=== PATIENT | male | born 1990 | race Caucasian/White ===

== ENCOUNTER 2017-01-22 23:26 | Emergency (ER) | payer SELFPAY ==
[2017-01-22 23:31] VITALS: RESP 16
[2017-01-22] MEDS ORDERED: ONDANSETRON 4 MG/2 ML VIAL IVP ONE (23:41)
[2017-01-22] MEDS ORDERED: NS 2,000 ML IV ONE (23:41)
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
[2017-01-22 23:49] LABS: % IMMATURE GRANULYOCYTES 0.2 % (0.0-1.1); ABSOLUTE IMMATURE GRANULOCYTES 0.02 10^3/uL (0.00-0.10); ADD DIFF? NO; ADD MORPH? NO; ADD SCAN? NO; ATYPICAL LYMPHOCYTE FLAG 10 (0-99); FRAGMENT RBC FLAG 0 (0-99); HEMATOCRIT 43.7 % (40.0-51.0); LEFT SHIFT FLG 0 (0-99); LIPEMIA HEMOLYSIS FLAG 90 (0-99); MEAN CELL HEMOGLOBIN 30.7 pg (27.9-34.1); MEAN CELL HEMOGLOBIN CONCENTR. 34.3 g/dL (32.4-36.7); MEAN CELL VOLUME 89.4 fL (81.5-99.8); MEAN PLATELET VOLUME 9.7 fL (8.7-11.7); PLATELET CLUMPS FLAG 0 (0-99); PLATELET COUNT 328 10^3/uL (150-400); RED BLOOD CELL COUNT 4.89 10^6/uL (4.40-6.38); RED CELL DISTRIBUTION WIDTH 12.6 % (11.5-15.2)
[2017-01-23 00:06] LABS: ALANINE AMINOTRANSFERASE 62 IU/L (21-72); ALBUMIN 4.5 g/dL (3.5-5.0); ALKALINE PHOSPHATASE 48 IU/L (38-126); ANION GAP 16 mEq/L (8-16); ASPARTATE AMINOTRANSFERASE 42 IU/L (17-59); BILIRUBIN,TOTAL 0.5 mg/dL (0.1-1.4); BILIRUBIN-CONJUGATED 0.4 mg/dL (0.0-0.5); BILIRUBIN-UNCONJUGATED 0.1 mg/dL (0.0-1.1); CALCIUM 9.5 mg/dL (8.5-10.4); CARBON DIOXIDE 19 mEq/l (22-31); CHLORIDE 107 mEq/L (97-110); CREATININE 0.8 mg/dL (0.7-1.3); ETHANOL SERUM 171 mg/dL (0-10); GLOMERULAR FILTRATION RATE > 60; GLUCOSE 98 mg/dL (70-100); SODIUM 142 mEq/L (134-144); TOTAL PROTEIN 7.7 g/dL (6.3-8.2)
[2017-01-23 01:12] VITALS: BP 116/66; PULSE 76; TEMP 97.9; O2SAT 96
== END 2017-01-23 01:12 | disposition home or self-care (01) ==
DX: R11.2 Nausea with vomiting, unspecified (principal); F17.200 Nicotine dependence, unspecified, uncomplicated; E86.9 Volume depletion, unspecified
CPT/HCPCS: 96374; G0480; J2405

== ENCOUNTER 2017-08-22 15:25 | Emergency (ER) | payer MEDICAID ==
[2017-08-22] MEDS ORDERED: TDAP ADULT 0.5 ML INJ (BOOSTRIX) IM ONE (16:06)
[2017-08-22] MEDS ORDERED: AMOXICILLIN/CLAVULANATE POT 875/125 MG TAB PO ONE (16:07)
[2017-08-22] MEDS ORDERED: SULFAMETHOX/TMP 800/160 MG 1 TAB PO ONE (16:07)
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
[2017-08-22 17:50] VITALS: BP 135/80; PULSE 81; RESP 18; TEMP 98.6; O2SAT 97
== END 2017-08-22 16:40 | disposition home or self-care (01) ==
DX: S61.452A Open bite of left hand, initial encounter (principal); F17.200 Nicotine dependence, unspecified, uncomplicated; Z23 Encounter for immunization; Y04.1XXA Assault by human bite, initial encounter; Y99.8 Other external cause status; Y93.89 Activity, other specified

== ENCOUNTER 2017-09-25 06:54 | Inpatient (IN) | payer MEDICAID ==
--- NOTE | 2017-09-25 07:32 | EDPHY ---
H & P Time Seen by Provider: 09/25/17 07:11 HPI/ROS: CHIEF COMPLAINT: Pain all over HISTORY OF PRESENT ILLNESS: 27-year-old male presents with a chief complaint of diffuse myalgias. 2 week history a painful rash on the lower extremities. The rash was initially accompanied by a sore throat, but the sore throat has now resolved. Over the past 2 days, he has noted increasing pain of the right ankle and this morning noticed that the ankle was red. However, his chief complaint is that he has pain all over, mainly in his upper and lower extremities. No known fever. No prior similar symptoms. REVIEW OF SYSTEMS: Constitutional: No fever, no chills Eyes: No visual changes ENT: No rhinorrhea Respiratory: No cough, no shortness of breath Cardiac: No chest pain Gastrointestinal: No nausea, no vomiting, no abdominal pain Genitourinary: No hematuria, no dysuria Musculoskeletal: No leg swelling Neurological: No headache, no numbness, no weakness Psychiatric: No depression Past Medical/Surgical History: Hepatitis-C Social History: lives in [place], staying with friends, employed Moderate alcohol use No IV drug abuse Smoking Status: Current every day smoker Physical Exam: General Appearance: Alert, pleasant, nontoxic-appearing Eyes: Pupils equal and round, no conjunctival pallor or injection ENT, Mouth: Mucous membranes moist, erythema of the posterior pharynx and uvula Neck: Normal inspection, no adenopathy Respiratory: Lungs are clear to auscultation Cardiovascular: Regular rate and rhythm, no murmur Gastrointestinal: Abdomen is soft and nontender Neurological: A&O, nonfocal, normal gait Skin: Warm and dry, purpuric rash on the lower legs Extremities: erythema, warmth and tenderness on the lateral aspect of the right ankle and foot, right ankle range of motion without pain Psychiatric: Mood and affect normal Constitutional: Initial Vital Signs Temperature (C) 36.8 C 09/25/17 07:00 Heart Rate 90 09/25/17 07:00 Respiratory Rate 18 09/25/17 07:00 Blood Pressure 139/99 H 09/25/17 07:00 O2 Sat (%) 96 09/25/17 07:00 O2 Delivery Mode Room Air Allergies/Adverse Reactions: No Known Allergies Allergy (Unverified 01/22/17 23:31) Home Medications: Medication Instructions Recorded Ferrous Sulfate [Ferrous Sulf 325 325 mg PO DAILY 09/25/17 MG (*)] Penicillin V Potassium [Pen Vk 500 mg PO QID #28 tab 09/26/17 500mg (*)] traMADol [Ultram 50 mg (*)] 50 mg PO Q6HRS PRN #10 tab 09/26/17 Medical Decision Making - Diagnostics Imaging Results: Ankle X-Ray 09/25/17 07:28 Impression: 1. No acute osseous abnormalities. 2. Marked soft tissue swelling about the lateral malleolus. Imaging: I viewed and interpreted images myself ED Course/Re-evaluation: This patient presents with cellulitis of the right lower extremity and a purpuric rash. Does not meet SIRS criteria. Concern for rhabdomyolysis versus viral infection, given diffuse muscular tenderness. He is nontoxic-appearing, though certainly will need to be admitted for further evaluation and care. Rapid strep obtained d/t recent ST and pharyngeal erythema; ?rash related to strep. X-ray of the right ankle ordered to rule out foreign body. No evidence of joint infection or gout; no pain with ROM of ankle. Laboratory results and x-ray discussed with the patient. Labs reveal leukocytosis, no coagulopathy and neg rapid strep. Xray negative for FB. Mild rhabdomyolysis with a CK of 1000; IV normal saline 1 L given. Myalgias secondary to rhabdo. Ancef 1 g IV given for cellulitis. The hospitalist service was consulted for admission. Differential Diagnosis: Differential diagnosis includes though not limited to SJS, osteomyelitis, retained foreign body, HSP, meningococcemia, rheumatologic disease, drug toxicity. - Data Points Laboratory Results: Laboratory Results 09/25/17 07:25 09/25/17 07:25 Medications Given: Discontinued Medications Acetaminophen (Tylenol) 650 mg PO ONCE ONE Stop: 09/25/17 09:31 Last Admin: 09/25/17 11:07 Dose: Not Given Enoxaparin Sodium (Lovenox) 40 mg SC DAILY AMARILIS Stop: 03/25/18 08:59 Last Admin: 09/26/17 08:15 Dose: 40 mg Ferrous Sulfate (Ferrous Sulfate) 325 mg PO DAILY AMARILIS Stop: 03/25/18 08:59 Last Admin: 09/26/17 08:13 Dose: 325 mg Cefazolin Sodium/Dextrose (Ancef 1 Gm (Premix)) 50 mls @ 200 mls/hr IV EDNOW ONE PRN Reason: Protocol Stop: 09/25/17 08:18 Last Admin: 09/25/17 08:19 Dose: 50 mls Sodium Chloride (Ns) 1,000 mls @ 0 mls/hr IV ONCE ONE; Wide Open PRN Reason: Protocol Stop: 09/25/17 08:11 Last Admin: 09/25/17 08:19 Dose: 1,000 mls Cefazolin Sodium/Dextrose (Ancef 1 Gm (Premix)) 50 mls @ 200 mls/hr IV Q8HRS AMARILIS PRN Reason: Protocol Stop: 10/25/17 13:59 Last Admin: 09/26/17 06:22 Dose: 50 mls Sodium Chloride (Ns) 1,000 mls @ 125 mls/hr IV CONT AMARILIS Stop: 03/24/18 11:29 Last Admin: 09/26/17 04:03 Dose: 1,000 mls Penicillin V Potassium (Pen Vk) 500 mg PO QID AMARILIS PRN Reason: Protocol Stop: 10/26/17 11:59 Last Admin: 09/26/17 12:40 Dose: 500 mg Tramadol HCl (Ultram) 50 mg PO Q6HRS PRN PRN Reason: Pain, Moderate Able to Take PO Stop: 03/24/18 09:51 Last Admin: 09/25/17 10:00 Dose: 50 mg Departure - Departure Disposition: [facility] Inpatient Acute Clinical Impression: Purpura Cellulitis Qualifiers: Site of cellulitis: extremity Site of cellulitis of extremity: lower extremity Laterality: right Qualified Code(s): L03.115 - Cellulitis of right lower limb Rhabdomyolysis Qualifiers: Rhabdomyolysis type: non-traumatic Qualified Code(s): M62.82 - Rhabdomyolysis Condition: Fair
[2017-09-25 07:34] LABS: PLATELET COUNT 339 10^3/uL (150-400)
[2017-09-25 07:44] LABS: INR 0.99 (0.83-1.16); PROTIME(PATIENT) 13.3 SEC (12.0-15.0)
[2017-09-25 07:47] LABS: CREATINE KINASE 1054 IU/L (0-224)
[2017-09-25] MEDS ORDERED: NS 1,000 ML IV ONE (08:10)
[2017-09-25] MEDS ORDERED: ACETAMINOPHEN 500 MG TAB PO ONE (09:22)
[2017-09-25] MEDS ORDERED: ACETAMINOPHEN 325 MG TAB ONE (09:24)
[2017-09-25] MEDS ORDERED: ACETAMINOPHEN 325 MG TAB PO ONE (09:30)
[2017-09-25] MEDS ORDERED: traMADol 50 MG TAB PO PRN (09:52)
[2017-09-25] MEDS ORDERED: LORazepam 2 MG/ML INJ IVP PRN (11:31)
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
[2017-09-25] MEDS: NS 1,000 ML IV SCH ×2 (12:29→20:05)
[2017-09-25 13:18] LABS: CREATINE KINASE 884 IU/L (0-224)
--- NOTE | 2017-09-25 13:49 | PDMN ---
Medical Necessity Medical necessity: Pt meets IP criteria per MD; est los >2 mn for eval/tx of LE rash, cellulitis of ankle, rhabdomyolysis & possible alcohol withdrawal; admit for further workup/monitoring, IV abx, IVFs & CIWA protocol; hx hep C, IV drug use & heavy alcohol use; per H&P & order; 09/25/17
--- NOTE | 2017-09-25 19:01 | POSTOPPROG ---
Post Op Note Date of Operation: 09/25/17 Surgeon: Jairon Salomon Anesthesia: Local (Specify) Pre-op Diagnosis: SKIN RASH IN POSSIBLE ABSCESS Post-op Diagnosis: SAME Indication: DIAGNOSIS Procedure: FULL-THICKNESS SKIN BIOPSY AND I AND D A OF MALLEOLAR ABSCESS Findings: PATH PENDING BUT THE ABSCESS FLUCTUANT AREA IT DID NOT CONTAIN ANY TRUE PUS Inf/Abcess present in the surg proc area at time of surgery?: Yes Depth: Superfical (Skin SQ) EBL: Minimal Complications: NONE Specimen(s): SKIN BIOPSY AND CULTURE
--- NOTE | 2017-09-26 00:47 | SOAPPROG ---
SOAP Progress Note Assessment/Plan: Assessment: 27 MALE WITH DIFFUSE PURPURA ON BOTH LEGS WITH EDEMA AND QUESTIONABLE FLUCTUANCE AROUND THE LAT MALLEOLUS FULL PULSES +HX OF HEP C NEED DIAGNOSTIC BX/ RISKS AND OPTIONS FULLY DISCUSSED Plan:DAILY WOUND PACKING/ SPECIMEN TO PATH AND C&S 09/26/17 00:43 Objective: Vital Signs Temp Pulse Resp BP Pulse Ox 36.8 C 72 16 127/74 H 97 09/25/17 23:16 09/25/17 23:16 09/25/17 23:16 09/25/17 23:16 09/25/17 23:16 Microbiology 09/25/17 13:20 Gram Stain - Final Other - Swab 09/24/17 09/25/17 09/26/17 05:59 05:59 05:59 Intake Total 1000 Output Total 250 Balance 750 PT 13.3 SEC (12.0-15.0) 09/25/17 07:25 INR 0.99 (0.83-1.16) 09/25/17 07:25 ICD10 Worksheet Patient Problems: Problems Problem Status Onset Cellulitis Acute Purpura Acute Rhabdomyolysis Acute
[2017-09-26] MEDS: NS 1,000 ML IV SCH (04:03)
[2017-09-26] MEDS ORDERED: ENOXAPARIN 40 MG/0.4 ML SYR SC SCH (09:00)
[2017-09-26] MEDS ORDERED: FERROUS SULFATE 325 MG TAB PO SCH (09:00)
[2017-09-26 10:53] LABS: GROUP A STREP DNA (THROAT) POSITIVE (NEGATIVE)
[2017-09-26] MEDS ORDERED: KETOROLAC 30 MG/1 ML SDV IVP PRN (10:56)
[2017-09-26 11:25] VITALS: BP 121/71
[2017-09-26] MEDS ORDERED: PENICILLIN VK 500 MG TAB PO SCH (12:00)
[2017-09-26 13:14] LABS: HIV TYPE 1 AND 2 NEGATIVE (NEGATIVE)
--- NOTE | 2017-09-26 17:55 | ASMTCMCOM ---
CM Note CM Note Notes: Dc order received. Met with pt to discuss dc poc. Pt is homeless & does not have a car. States he has some friends to stay with & a bus pass. Pt also has a job & money for his medications. Pt agreeable to follow-up care at the [facility]. Appointment made for pt for 09/29/[address] Martinez' pt agreeable. Pt provided with [facility] info. Spoke with RN; pt taught how to do his dressing changes & was provided with supplies. No other needs at this time. Date Signed: 09/26/2017 05:53 PM Electronically Signed By:Xochitl Booker RN
--- NOTE | 2017-09-26 18:07 | ASDISCHSUM ---
Discharge Information Plan Status:Homeless/Penitentiary Medically Cleared to Leave: Discharge Date:09/26/2017 03:44 PM CM D/C Disposition:Home, Routine, Self-Care ADT D/C Disposition:Home, Routine, Self-Care Projected Discharge Date:09/26/2017 03:44 PM Transportation at D/C:Bus Ticket Discharge Delay Reason: Follow-Up Date:09/26/2017 03:44 PM Discharge Slot: Final Diagnosis: Placement Information Patient Contact Information Contact Name:TIARRABANG Relationship: Address: Home Phone: Work Phone: City: Alternate Phone: State/Qraved Code: Email: Financial Information Financial Class:Medicaid Primary Plan Desc:MEDDATA Primary Plan Number:[id number] Secondary Plan Desc: Secondary Plan Number: Assessment Information [facility] CM Progress Note CM Note CM Note Notes: Dc order received. Met with pt to discuss dc poc. Pt is homeless & does not have a car. States he has some friends to stay with & a bus pass. Pt also has a job & money for his medications. Pt agreeable to follow-up care at the [facility]. Appointment made for pt for 09/29/[address] Martinez' pt agreeable. Pt provided with [facility] info. Spoke with RN; pt taught how to do his dressing changes & was provided with supplies. No other needs at this time. Date Signed: 09/26/2017 05:53 PM Electronically Signed By:Xochitl Booker RN LACE LACErika Length of stay for Answers: 2 days current admission Acuity / Level of Answers: Yes Care: Did the patient have an inpatient admission? # of Emergency department Answers: 1-2 visits in the last 6 months Social determinants Answers: History of substance abuse (ETOH, street drugs, prescription drugs, etc.) Homelessness (street, [facility]) Lack of community resources and/or lack of social support (no pcp, lives alone, transportation, mago d) Score: 16 Date Signed: 09/26/2017 05:56 PM Electronically Signed By:Xochitl Booker RN Intervention Information
--- NOTE | 2017-09-26 18:28 | GDS ---
[f rep st] DISCHARGE SUMMARY DISCHARGE DIAGNOSES: Include: 1. Acute rash/purpura. 2. Chronic hepatitis C. 3. Polysubstance abuse. 4. Myalgias/arthralgias. HISTORY OF PRESENT ILLNESS: A 27-year-old male who is partially homeless, living on [employer] couches and working as a vegetable preparer, who presents with pain of the right lower extremity with associated chilo a and a new rash of his bilateral shins. For details of the patient's initial presentation please see the history and physical dated 09/25/2017. CONSULTATIVE SERVICES: Include General Surgery. PROCEDURES: Include skin biopsy. HOSPITAL COURSE: 1. Acute rash/purpura. There was a non-blanching skin change with associated swelling of the right a nkle and foot. There was noted erythema and edema over the lateral malleolus of the right ankle witho ut additional streaking or cellulitic changes. The patient was brought in and worked up for possible cryoglobulinemia related to his chronic hep C or other causes of leukocytoclastic vasculitis. In the screening laboratories, patient's strep A DNA was positive as well as the rheumatoid factor. Multiple other laboratories are pending at the time of his disposition, including UPEP, SPEP, and cryoglobuli ns. After review with Infectious Disease, it was felt appropriate to treat for strep A for 1 week to take possible leukocytoclastic vasculitis secondary to strep off the list. The patient will complete a 7-day course of oral penicillin. If his symptoms are not improved when he follows at [facility], then the recommendation would be to follow with Gastroenterology in the outpatient setting to disc uss treatment of his hepatitis C. At that time, his laboratory workup for cryoglobulinemia should be available and usable for concluding the diagnosis and potentially initiating treatment for his hep C. 2. Polysubstance abuse. Patient's U-Tox was positive for both amphetamines and THC. 3. Arthralgias may be related to cryoglobulinemia if present. We will treat the patient with the ant i inflammatories. Did provide 10 tablets of Ultram to use in the acute setting until he is seen at [facility] next week at the summation of his penicillin prescription. PENDING STUDIES: At the time of this dictation, include: 1. Skin biopsies performed by Dr. Salomon. Results should be followed by [facility] and/or Gastro enterology. 2. Multiple labs related to the workup of cryoglobulinemia. Those, too, should be followed by the [facility] gastroenterologists. Contact information for [facility] have been provided. The patient has been educated on how to dress his right foot skin biopsy wounds. He can follow with Dr. Salomon in the outpatient setting f or post-biopsy followup. He has been provided an appointment with [facility] on 09/29/2017. MEDICATIONS AT THE TIME OF DISPOSITION: Please reference the med rec printed on 09/26/2017. FOLLOWUP APPOINTMENTS: Include. 1. With [facility]. 2. With Dr. Salomon. 3. Potentially with Gastroenterology if needed for ongoing evaluation of his lower-extremity rash. TIME SPENT: I spent greater than 30 minutes in the planning and coordination of this discharge. /[id number]/MODL
[2017-09-28] MEDS ORDERED: THIAMINE HCL 100 MG TAB PO SCH (11:31)
== END 2017-09-26 15:44 | disposition home or self-care (01) | DRG 661 ==
LOC: F3N 09:42
PROVIDERS: ADMIT Internal Medicine; ATTEND Hospitalist
PROC: 0HBKXZX Excision of Right Lower Leg Skin, External Approach, Diagnostic (ICD-10-PCS; principal; 2017-09-25)
DX: D69.2 Other nonthrombocytopenic purpura (principal); R21 Rash and other nonspecific skin eruption; M62.82 Rhabdomyolysis; B18.2 Chronic viral hepatitis C; F10.20 Alcohol dependence, uncomplicated; F15.10 Other stimulant abuse, uncomplicated; F12.10 Cannabis abuse, uncomplicated; M25.50 Pain in unspecified joint
CPT/HCPCS: 80307; 82180-90; 82595-90; 84166-90; 86334-90; G0480; J0690; J1650; J1885